=== PATIENT | female | born 1965 | race Caucasian/White ===

== ENCOUNTER 2018-04-17 06:06 | Emergency (ER) | payer MEDICAID ==
[~2018-04-17] VITALS: Ht 165.1 cm; Wt 71.0 kg
[~2018-04-17 06:06] MED LIST: NO HOME MEDS
[2018-04-17 06:25] VITALS: BP 137/89
== END 2018-04-17 06:56 | disposition home or self-care (01) ==
LOC: ER 06:06
DX: K46.9 Unspecified abdominal hernia without obstruction or gangrene (principal); Z88.8 Allergy status to other drugs, medicaments and biological substances
CPT/HCPCS: 99281

== ENCOUNTER 2018-08-01 12:15 | Day surgery (SDC) | payer MEDICAID ==
[~2018-08-01] VITALS: Ht 165.1 cm; Wt 67.0 kg
[2018-08-01] VITALS (7 sets, daily range): BP systolic 107–124; BP diastolic 62–75
[~2018-08-01 12:15] MED LIST changes: +sevoflurane 250ml liquid IH ONE
[2018-08-01] MEDS ORDERED: famotidine 20mg tablet PO ONE (12:45)
[2018-08-01] MEDS ORDERED: cefazolin/dext.iso 2gm/100ml 100 ML IV ONE (12:45)
[2018-08-01] MEDS ORDERED: ringers solution, lacted 1,000 ML IV SCH ×2 (12:45→17:59)
[2018-08-01 13:05] LABS: BASOPHILS % (AUTO) 0.5 % (0-1); EOSINOPHILS # (AUTO) 0.1 X10'3 (0-0.9); EOSINOPHILS % (AUTO) 1.1 % (0-6); LYMPHOCYTES # (AUTO) 2.3 X10'3 (1.1-4.8); LYMPHOCYTES % (AUTO) 27.6 % (21-51); MEAN CORPUSCULAR HEMOGLOBIN 29.8 PG (27.0-31.0); MEAN CORPUSCULAR HGB CONC 33.7 g/dL (33.0-36.5); MEAN CORPUSCULAR VOLUME 88.4 FL (78-98); MEAN PLATELET VOLUME 7.7 FL (7.4-10.4); MONOCYTES # (AUTO) 0.6 X10'3 (0-0.9); MONOCYTES % (AUTO) 6.9 % (2-12); NEUTROPHILS # (AUTO) 5.3 X10'3 (1.8-7.7); NEUTROPHILS % (AUTO) 63.9 % (42-75); PRE OP HEMATOCRIT 35.6 % (35.0-45.0); PRE OP PLATELET COUNT 269 X10'3 (140-440); RED BLOOD COUNT 4.03 X10'6 (4.20-5.60)
[2018-08-01 13:19] LABS: ALBUMIN 3.1 G/DL (3.4-5.0); ALBUMIN/GLOBULIN RATIO 0.8 (1.1-1.5); ALKALINE PHOSPHATASE 84 IU/L (46-116); BLOOD UREA NITROGEN 10 MG/DL (7-18); BUN/CREATININE RATIO 16.4 (6.6-38.0); CALCIUM 8.7 MG/DL (8.5-10.1); CHLORIDE 103 MMOL/L (99-107); CREATININE 0.61 MG/DL (0.40-0.90); PRE OP ALT 28 U/L (30-65); PRE OP ANION GAP 5 (8-16); PRE OP AST 21 U/L (10-37); PRE OP BILIRUB, TOTAL 0.3 MG/DL (0.0-1.0); PRE OP GLUCOSE 85 MG/DL (70-104); PRE OP POTASSIUM 3.6 MMOL/L (3.4-5.1); PRE OP SODIUM 138 MMOL/L (135-145); TOTAL CARBON DIOXIDE 29.8 MMOL/L (24-32); TOTAL PROTEIN 7.2 G/DL (6.4-8.2); eGFR > 90 ML/MIN
[2018-08-01] MEDS ORDERED: ceFAZolin 1000mg inj ONE (16:47)
[2018-08-01] MEDS ORDERED: BUPIVAcaine/PF 2.5 mg/ml (0.25%) 30ml vial ONE (16:47)
[2018-08-01] MEDS ORDERED: fentaNYL/PF 50MCG/1 ML 2ML syringe ONE (17:08)
[2018-08-01] MEDS ORDERED: midazolam 2 mg/2 ml injection ONE (17:09)
[2018-08-01] MEDS ORDERED: dexamethasone sod phosphate 4mg/ml inj. ONE (17:40)
[2018-08-01] MEDS ORDERED: neostigmine methylsulfate 1 MG/ML 10ml vial ONE (17:40)
[2018-08-01] MEDS ORDERED: rocuronium 10mg/ml inj IV ONE (17:40)
[2018-08-01] MEDS ORDERED: glycopyrrolate 0.2mg/ml inj ONE (17:40)
[2018-08-01] MEDS ORDERED: ondansetron/PF 4mg/2ml inj ONE (17:40)
[2018-08-01] MEDS ORDERED: LIDOcaine 2% (20mg/ml) 5ml vial ONE (17:40)
[2018-08-01] MEDS ORDERED: propofol inj 20 ML IV ONE (17:40)
[2018-08-01] MEDS ORDERED: morphine 4 MG/ML inj SYRINge IV PRN ×2 (18:00)
[2018-08-01] MEDS ORDERED: ondansetron/PF 4mg/2ml inj IV PRN (18:00)
[2018-08-01] MEDS ORDERED: meperidine/PF 25mg/ml syringe IV PRN ×3 (18:00)
--- NOTE | 2018-08-01 18:00 | NUR ---
Received from OR via BED , accompanied by Anesthesiologist DR CASTREJON and report given by Anesthesiolgist. PATIENT WAKING UP, DENIES PAIN, V/S WNL, NEUROVASCULAR CHECKS INTACT, 20G PIV LUE, SCD ON, BANDAIDS TO LAP SIGHTS OF ABDOMEN CDI.
--- NOTE | 2018-08-01 19:00 | NUR ---
PATIENT A&OX4, DENIES PAIN, V/S WNL, NEUROVASCULAR CHECKS INTACT, 20G PIV LUE D/C, SCD OFF, BANDAIDS TO ABDOMEN LAP SIGHTS CDI.. I HAVE REVIEWED D/C INSTRUCTIONS WITH PATIENT AND FAMILY HAVE VERBALIZED UNDERSTANDING.PATIENT WAS D/C HOME WITH ALL BELONGINGS AND FAMILY GAVE TRANSPORT HOME.
== END 2018-08-01 19:00 | disposition home or self-care (01) ==
LOC: PAS 12:15
PROVIDERS: ATTEND Surgery
PROC: 0WQF0ZZ Repair Abdominal Wall, Open Approach (ICD-10-PCS; principal; 2018-08-01 17:07)
DX: K42.0 Umbilical hernia with obstruction, without gangrene (principal); F17.210 Nicotine dependence, cigarettes, uncomplicated; Z91.030 Bee allergy status; Z88.8 Allergy status to other drugs, medicaments and biological substances; Z01.810 Encounter for preprocedural cardiovascular examination
CPT/HCPCS: 36415; 49587; 80053; 85025; 93005; C1758; J0690; J1100; J2001; J2250; J2405; J2704; J2710; J3010; J3490; J7120; A7000